=== PATIENT | male | born 1985 | race Asian ===

== ENCOUNTER 2021-10-30 09:19 | Emergency (ER) | payer MEDICAID ==
[~2021-10-30] VITALS: Ht 172.7 cm; Wt 90.0 kg
[2021-10-30] MEDS ORDERED: HYDR50TA54 MT (10:58)
[2021-10-30] MEDS ORDERED: ZOLP6.252 MT (10:58)
[2021-10-30 11:08] VITALS: BP 124/77
== END 2021-10-30 11:09 | disposition home or self-care (01) ==
LOC: ER 09:43
DX: G47.00 Insomnia, unspecified (principal)
CPT/HCPCS: 99281; 99283

== ENCOUNTER 2021-11-07 15:21 | Emergency (ER) | payer MEDICAID ==
[~2021-11-07] VITALS: Ht 172.7 cm; Wt 88.0 kg
[~2021-11-07 15:21] MED LIST: HYDR50TA54 MT; ZOLP6.252 MT
[2021-11-07] MEDS ORDERED: ONDANSETRON HCL 4MG/2ML INJ IV STA (19:40)
[2021-11-07] MEDS ORDERED: FAMOTIDINE 20MG/2ML VIAL IV STA (19:40)
[2021-11-07] MEDS ORDERED: MAGNESIUM/ALUMINUM HYDROXIDE/SIMETHICONE 30ML UDC PO STA (19:40)
[2021-11-07] MEDS ORDERED: ONDA4TAB5 MT (20:01)
[2021-11-07] MEDS ORDERED: FAMO20TA8 MT (20:01)
[2021-11-07] MEDS ORDERED: MAG-55 MT (20:01)
[2021-11-07 20:11] LABS: BASOPHILS % 0.2 % (0.0-2.0); EOSINOPHILS % 0.8 % (0.0-5.0); HEMATOCRIT. 47.5 % (42.0-52.0); HEMOGLOBIN. 16.2 g/dL (14.0-18.0); LYMPHOCYTES % 25.2 % (20.0-50.0); MEAN CORPUSCULAR VOLUME 90.7 fL (80.0-94.0); MEAN PLATELET VOLUME 8.3 fl (7.4-10.4); MONOCYTES % 4.9 % (2.0-8.0); NEUTROPHILS % 68.9 % (40.0-76.0); PLATELET 212 x1000/uL (130-400); RED BLOOD CELL COUNT 5.24 mill/uL (4.7-6.1); RED CELL DISTRIBUTION WIDTH 13.4 % (11.6-14.6)
[2021-11-07 20:16] LABS: CHLORIDE 104 mEq/L (98-107)
[2021-11-07 22:15] VITALS: BP 125/76
== END 2021-11-07 22:35 | disposition home or self-care (01) ==
LOC: ER 15:21
DX: F41.9 Anxiety disorder, unspecified (principal); R20.0 Anesthesia of skin; I10 Essential (primary) hypertension; F13.20 Sedative, hypnotic or anxiolytic dependence, uncomplicated; F90.9 Attention-deficit hyperactivity disorder, unspecified type; F43.10 Post-traumatic stress disorder, unspecified; G47.00 Insomnia, unspecified
CPT/HCPCS: 36415; 70450; 80053; 85025; 93005; 99285; J3490; J2405